=== PATIENT | male | born 1985 | race Caucasian/White ===

== ENCOUNTER 2016-11-11 11:44 | Emergency (ER) | payer MEDICAID, OTHER ==
[~2016-11-11] VITALS: Wt 63.0 kg
[2016-11-11] MEDS ORDERED: NAPR-260 PO (14:31)
--- NOTE | 2016-11-11 17:01 | ERD ---
DATE OF SERVICE: 11/11/2016 HISTORY OF PRESENT ILLNESS: The patient is a 31-year-old male coming in complaining of swelling to his knee. He was told he had an abscess on his knee. It was drained at the clinic although there w as only blood. He has been taking Bactrim and Keflex and NSAIDs for the pain, but states that the s welling has continued. 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 He was frequently putting pressure on his knees. PAST MEDICAL HISTORY: Denies any other medical problems. ALLERGIES: TO MEDICATIONS DENIED. PAST SURGICAL HISTORY: Denies. SOCIAL HISTORY: Denies. REVIEW OF SYSTEMS: A 12-point review of systems was done. Refer to HPI for positives, all other sy stems negative. PHYSICAL EXAMINATION VITAL SIGNS: Temperature is 98.8, pulse 91, blood pressure is 142/85, respiratory rate 22, O2 sat 9 9% on room air. Pain intensity is 6/10. GENERAL: The patient is well-appearing, well-nourished, no acute distress. CHEST: Clear to auscultation bilaterally. There are no rales, wheezes or rhonchi. HEART: Regular rate and rhythm. No murmurs, clicks, rubs or gallops. No S3 or S4. EXTREMITIES: Equal pulses bilaterally. There is no peripheral clubbing, cyanosis or edema. No focal swelling or erythema. Full range of motion. Grossly neurovascularly intact. SKIN: There is a swelling site noted over the anterior aspect of the right knee. There is no surro unding erythema, no fluctuance. There is no pain at the joint space. DIAGNOSIS: Prepatellar bursitis. MEDICAL DECISION MAKING: I have low suspicion for underlying infection. The patient has no erythem a noted. There is no warmth to touch. There are no signs of septic joint. Patient has full range of motion of the joint without any severe pain. Low suspicion for acute fracture or dislocation. DISCHARGE: The patient is discharged stable. Patient is told to use an Cleve wrap at home for compre ssion and continue icing and elevate. The patient is also recommended to refrain from pain from wor [place] on his knees. The patient is discharged stable. Patient given prescription for naproxen and told to follow up wit h primary care within 1 to 2 days for reevaluation. The patient was told if symptoms progress or wo rsen to return to the ER. All other questions answered at time of discharge. Discharge summary giv en at the time of departure. Patient understood and complied with plan. Dictated By: DRU LOVE for ASHLEY BURCIAGA/ALEK Conf#: [id number] DID#: [id number]
== END 2016-11-11 14:39 | disposition home or self-care (01) ==
LOC: FTE 11:44
DX: M70.41 Prepatellar bursitis, right knee (principal); Y93.9 Activity, unspecified
CPT/HCPCS: 99283

== ENCOUNTER 2017-02-21 18:18 | Emergency (ER) | payer MEDICAID ==
[~2017-02-21] VITALS: Ht 165.1 cm; Wt 57.5 kg
[~2017-02-21 18:18] MED LIST: NAPR-260 PO
[2017-02-21 18:35] VITALS: Ht 165.1 cm; Wt 57.5 kg
[2017-02-21] MEDS ORDERED: LIDOCAINE 2% 20 ML UROJET SYRINGE MM ONE (20:00)
--- NOTE | 2017-02-21 20:16 | ERD ---
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 The patient had a swelling area on top of his right kneecap for the past 3 weeks without erythema or pain ROS All systems reviewed and are negative except as per history of present illness. Medications Home Meds Active Scripts Naproxen* (Naprosyn*) 500 Mg Tablet, 500 MG PO BID Y for PAIN AND/OR INFLAMMATION, #30 TAB Prov:PERLA MCMULLEN PA-C 11/11/16 Allergies Allergies: Coded Allergies: No Known Allergy (Unverified , 11/11/16) PMhx/Soc Medical and Surgical Hx: pt denies Medical Hx, pt denies Surgical Hx Hx Alcohol Use: No Hx Substance Use: No Hx Tobacco Use: No Smoking Status: Never smoker FmHx Family History: No coronary disease Physical Exam Vitals Vital Signs Date Time Temp Pulse Resp B/P Pulse Ox O2 Delivery O2 Flow Rate FiO2 02/21/17 18:35 98.4 60 16 119/75 100 Physical Exam Const: Well-developed, well-nourished Head: Atraumatic, normocephalic Eyes: Normal Conjunctiva, PERRLA, EOMI, normal sclera, no nystagmus ENT: Normal External Ears, Nose and Mouth, moist mucus membranes. Neck: Full range of motion. No meningismus, no lymphadenopathy. Resp: Clear to auscultation bilaterally, no wheezing, rhonchi, rales Cardio: Regular rate and rhythm, no murmurs, S1 S2 present Abd: Soft, non tender x 4, non distended. Normal bowel sounds, no guarding or rebound, no pulsitile abdominal masses or bruits Skin: No petechiae or rashes, no ecchymosis , no maculopapular rash Back: No midline or flank tenderness Ext: No cyanosis, or edema, FROM x 4, normal inspection, neurovascularly intact x 4, the right knee has a new Swelling that is distinctly marginated consistent with prepatellar bursitis no erythema no pain with movement Neur: Awake and alert, STR 5/5 x 4, sensation intact x 4, no focal findings, cerebellum intact Psych: Normal Mood and Affect Results 24 hrs Current Medications Medications (Trade) Dose Ordered Sig/[place] Route PRN Reason Start Time Stop Time Status Last Admin Dose Admin Lidocaine (Lidocaine 2% Urojet) 20 ml ONCE ONCE MM 02/21/17 20:00 02/21/17 20:01 DC Procedures/MDM Procedure: Prepatellar bursitis drainage by me Skin was prepped with Betadine and aseptic technique The skin was anesthetized the lateral margin of the bursitis with 1 cc of 2% lidocaine with epi 18-gauge needle was used to inject into the bursitis and 15 cc of serous fluid was removed with complete resolution of the swelling Departure Diagnosis: Primary Impression: Prepatellar bursitis Laterality: right Qualified Code: M70.41 - Prepatellar bursitis of right knee Condition: Stable Patient Instructions: STEFAN Bautista DO Feb 21, 2017 20:16
== END 2017-02-21 20:51 | disposition home or self-care (01) ==
LOC: FTE 18:18
DX: M70.41 Prepatellar bursitis, right knee (principal); Y93.9 Activity, unspecified
CPT/HCPCS: 20610; Z7502; Z7610